=== PATIENT | male | born 1965 | race Caucasian/White ===

== ENCOUNTER 2020-10-24 08:46 | Inpatient (IN) | payer OTHER ==
[2020-10-24 10:15] VITALS: BMI 20.7
[2020-10-24] MEDS ORDERED: MENTHOL/PHENOL 1 EACH UD MM PRN (10:26)
[2020-10-24] MEDS ORDERED: ACETAMINOPHEN 325 MG TABLET (FP) PO PRN (10:26)
[2020-10-24] MEDS ORDERED: MAGNESIUM HYDROX 2400MG/30ML ORAL SUSPENSION 30 ML CUP PO PRN (10:26)
[2020-10-24] MEDS ORDERED: MAGNESIUM CITRATE 300 ML BOTTLE PO PRN (10:26)
[2020-10-24] MEDS ORDERED: MAG HYDROX/AL HYDROX/SIMETH 30 ML UNIT-DOSE CUP PO PRN (10:26)
[2020-10-24] MEDS ORDERED: BISMUTH SUBSALICYLATE 524 MG/30 ML UD PO PRN (10:26)
[2020-10-24] MEDS ORDERED: ONDANSETRON *ODT* 4 MG TABLET SL PRN (10:26)
[2020-10-24] MEDS ORDERED: NICOTINE POLACRILEX 2 MG GUM BUC PRN (10:26)
[2020-10-24] MEDS ORDERED: cloNIDine HCL 0.1 MG TABLET PO PRN (10:26)
[2020-10-24] MEDS ORDERED: METHADONE HCL 10 MG TABLET (FOR DETOX USE ONLY) PO ONE (11:00)
[2020-10-24] MEDS: NICOTINE 21 MG/24 HOURS TOPICAL PATCH TD SCH (12:06)
[2020-10-24 14:26] LABS: HEMATOCRIT 41.1 % (35.4-49); HEMOGLOBIN 13.3 GM/dL (11.7-16.9); MEAN CELL VOLUME 93.3 fl (80-96); WHITE BLOOD COUNT 9.4 K/mm3 (4.0-10.0)
[2020-10-24 14:27] LABS: MCH 30.2 pg (25.7-33.7); MCHC 32.4 g/dl (32.0-35.9); MEAN PLT VOLUME 10.3 fl (7.5-11.1); PLATELET COUNT 124 K/MM3 (134-434)
[2020-10-24 14:32] LABS: POTASSIUM 5.1 mmol/L (3.5-5.1)
[2020-10-24 14:34] LABS: ALBUMIN 3.5 g/dl (3.4-5.0); BLOOD UREA NITROGEN 19.3 mg/dL (7-18); CALCIUM 8.9 mg/dL (8.5-10.1)
[2020-10-24] MEDS: hydrOXYzine PAMOATE 25 MG CAPSULE (FP) PO SCH ×3 (14:37→22:19)
[2020-10-24 14:38] LABS: CREATININE 0.9 mg/dL (0.55-1.3)
[2020-10-24 14:39] LABS: BILIRUBIN,TOTAL 0.3 mg/dL (0.2-1); TOT PROT 7.4 g/dl (6.4-8.2)
[2020-10-24] MEDS: IBUPROFEN 400 MG TABLET (FP) PO PRN (17:37)
[2020-10-24] MEDS: MELATONIN 5 MG TABLETS PO SCH (22:19)
[2020-10-24] MEDS: THIAMINE HCL 100 MG TABLET (FP) PO SCH (22:19)
[2020-10-24] MEDS: METHOCARBAMOL 500 MG TABLET PO PRN (22:20)
[2020-10-25] MEDS: hydrOXYzine PAMOATE 25 MG CAPSULE (FP) PO SCH ×3 (05:23→14:55)
[2020-10-25] MEDS ORDERED: METHADONE HCL 5 MG TABLET (FOR DETOX USE ONLY) ONE (09:13)
[2020-10-25] MEDS ORDERED: METHADONE HCL 10 MG TABLET (FOR DETOX USE ONLY) ONE (09:13)
[2020-10-25] MEDS ORDERED: METHADONE (DETOX) 20 MG, METHADONE (DETOX) 5 MG PO ONE (10:00)
[2020-10-25] MEDS: PRENATAL VITAMINS W/ FOLIC ACID TABLET (FP) PO SCH (10:32)
[2020-10-25] MEDS: NICOTINE 21 MG/24 HOURS TOPICAL PATCH TD SCH (10:33)
[2020-10-25] MEDS: hydrOXYzine PAMOATE 50 MG CAPSULE (FP) PO SCH ×3 (17:00→23:07)
[2020-10-25] MEDS: IBUPROFEN 400 MG TABLET (FP) PO PRN (17:38)
[2020-10-25] MEDS: ARIPiprazole 2 MG TABLET PO SCH (23:07)
[2020-10-25] MEDS: MELATONIN 5 MG TABLETS PO SCH (23:07)
[2020-10-25] MEDS: METHOCARBAMOL 500 MG TABLET PO PRN (23:07)
[2020-10-25] MEDS: THIAMINE HCL 100 MG TABLET (FP) PO SCH (23:07)
[2020-10-25] MEDS: traZODone HCL 50 MG TABLET (FP) PO SCH (23:07)
[2020-10-26] MEDS: hydrOXYzine PAMOATE 50 MG CAPSULE (FP) PO SCH ×6 (05:35→23:13)
[2020-10-26] MEDS ORDERED: METHADONE HCL 10 MG TABLET (FOR DETOX USE ONLY) PO ONE (10:00)
[2020-10-26] MEDS: NICOTINE 21 MG/24 HOURS TOPICAL PATCH TD SCH (10:28)
[2020-10-26] MEDS: PRENATAL VITAMINS W/ FOLIC ACID TABLET (FP) PO SCH (10:28)
[2020-10-26] MEDS: ACETAMINOPHEN 325 MG TABLET (FP) PO PRN (10:30)
[2020-10-26] MEDS: METHOCARBAMOL 500 MG TABLET PO PRN ×2 (10:30→23:13)
[2020-10-26] MEDS: IBUPROFEN 400 MG TABLET (FP) PO PRN (17:18)
[2020-10-26] MEDS: traZODone HCL 50 MG TABLET (FP) PO SCH (23:13)
[2020-10-26] MEDS: THIAMINE HCL 100 MG TABLET (FP) PO SCH (23:13)
[2020-10-26] MEDS: MELATONIN 5 MG TABLETS PO SCH (23:14)
[2020-10-26] MEDS: ARIPiprazole 2 MG TABLET PO SCH (23:14)
[2020-10-27] MEDS: hydrOXYzine PAMOATE 50 MG CAPSULE (FP) PO SCH ×6 (06:19→23:04)
[2020-10-27] MEDS ORDERED: METHADONE HCL 10 MG TABLET (FOR DETOX USE ONLY) ONE (09:20)
[2020-10-27] MEDS ORDERED: METHADONE HCL 5 MG TABLET (FOR DETOX USE ONLY) ONE (09:21)
[2020-10-27] MEDS: ARIPiprazole 5 MG TABLET PO SCH (09:38)
[2020-10-27] MEDS: METHOCARBAMOL 500 MG TABLET PO PRN ×2 (09:39→23:04)
[2020-10-27] MEDS: IBUPROFEN 400 MG TABLET (FP) PO PRN (09:39)
[2020-10-27] MEDS: NICOTINE 21 MG/24 HOURS TOPICAL PATCH TD SCH (09:40)
[2020-10-27] MEDS: PRENATAL VITAMINS W/ FOLIC ACID TABLET (FP) PO SCH (09:40)
[2020-10-27] MEDS ORDERED: METHADONE (DETOX) 10 MG, METHADONE (DETOX) 5 MG PO ONE (10:00)
[2020-10-27] MEDS: traZODone HCL 50 MG TABLET (FP) PO SCH (23:05)
[2020-10-27] MEDS: THIAMINE HCL 100 MG TABLET (FP) PO SCH (23:05)
[2020-10-27] MEDS: MELATONIN 5 MG TABLETS PO SCH (23:05)
[2020-10-28] MEDS: hydrOXYzine PAMOATE 50 MG CAPSULE (FP) PO SCH ×5 (06:50→21:05)
[2020-10-28] MEDS ORDERED: METHADONE HCL 10 MG TABLET (FOR DETOX USE ONLY) PO ONE (10:00)
[2020-10-28] MEDS: ARIPiprazole 5 MG TABLET PO SCH (10:23)
[2020-10-28] MEDS: METHOCARBAMOL 500 MG TABLET PO PRN (10:23)
[2020-10-28] MEDS: PRENATAL VITAMINS W/ FOLIC ACID TABLET (FP) PO SCH (10:24)
[2020-10-28] MEDS: NICOTINE 21 MG/24 HOURS TOPICAL PATCH TD SCH (10:24)
[2020-10-28] MEDS: THIAMINE HCL 100 MG TABLET (FP) PO SCH (21:05)
[2020-10-28] MEDS: MELATONIN 5 MG TABLETS PO SCH (21:05)
[2020-10-28] MEDS: traZODone HCL 50 MG TABLET (FP) PO SCH (21:06)
[2020-10-28] MEDS: ACETAMINOPHEN 325 MG TABLET (FP) PO PRN (21:07)
[2020-10-29] MEDS: hydrOXYzine PAMOATE 50 MG CAPSULE (FP) PO SCH ×4 (00:01→15:47)
[2020-10-29] MEDS: IBUPROFEN 400 MG TABLET (FP) PO PRN (05:18)
[2020-10-29] MEDS ORDERED: METHADONE HCL 5 MG TABLET (FOR DETOX USE ONLY) PO ONE (06:00)
[2020-10-29] MEDS: NICOTINE 21 MG/24 HOURS TOPICAL PATCH TD SCH (09:54)
[2020-10-29] MEDS: PRENATAL VITAMINS W/ FOLIC ACID TABLET (FP) PO SCH (09:54)
[2020-10-29] MEDS: ARIPiprazole 5 MG TABLET PO SCH (09:54)
[2020-10-29] MEDS: ACETAMINOPHEN 325 MG TABLET (FP) PO PRN (15:45)
[2020-10-29] MEDS: traZODone HCL 50 MG TABLET (FP) PO SCH (22:18)
[2020-10-29] MEDS: MELATONIN 5 MG TABLETS PO SCH (22:18)
[2020-10-29] MEDS: THIAMINE HCL 100 MG TABLET (FP) PO SCH (22:18)
[2020-10-29] MEDS: METHOCARBAMOL 500 MG TABLET PO PRN (22:19)
[2020-10-30] MEDS: hydrOXYzine PAMOATE 50 MG CAPSULE (FP) PO SCH ×5 (00:22→07:35)
[2020-10-30 09:08] VITALS: BP 118/63; PULSE 81; TEMP 97.7
[2020-10-30] MEDS: NICOTINE 21 MG/24 HOURS TOPICAL PATCH TD SCH (10:11)
[2020-10-30] MEDS: PRENATAL VITAMINS W/ FOLIC ACID TABLET (FP) PO SCH (10:11)
[2020-10-30] MEDS: ARIPiprazole 5 MG TABLET PO SCH (10:11)
== END 2020-10-30 13:09 | disposition other institution (70) | DRG 773 ==
LOC: YASAS 08:46 → Y3N 10:47
PROVIDERS: ADMIT Allergy & Immunology; ATTEND Allergy & Immunology
PROC: HZ2ZZZZ Detoxification Services for Substance Abuse Treatment (ICD-10-PCS; principal; 2020-10-24)
DX: F11.23 Opioid dependence with withdrawal (principal); F12.20 Cannabis dependence, uncomplicated; F17.213 Nicotine dependence, cigarettes, with withdrawal; F19.24 Other psychoactive substance dependence with psychoactive substance-induced mood disorder; F20.0 Paranoid schizophrenia; G47.00 Insomnia, unspecified; F95.2 Tourette's disorder; M54.5 Low back pain; G89.29 Other chronic pain; Z91.19 Patient's noncompliance with other medical treatment and regimen
CPT/HCPCS: 36415; 80053; 85027; 86780; 93005; 93010; C9803; U0003

== ENCOUNTER 2020-10-30 14:29 | Inpatient (IN) | payer OTHER ==
[~2020-10-30 14:29] MED LIST: ACETAMINOPHEN 325 MG TABLET (FP) PO PRN; LOPERAMIDE HCL 2 MG CAPSULE PO PRN; MAG HYDROX/AL HYDROX/SIMETH 30 ML UNIT-DOSE CUP PO PRN; MAGNESIUM CITRATE 300 ML BOTTLE PO PRN; MAGNESIUM HYDROX 2400MG/30ML ORAL SUSPENSION 30 ML CUP PO PRN; NICOTINE POLACRILEX 4 MG GUM BC PRN; P-EPHED 60MG/TRIPROLIDI 2.5MG TABLET PO PRN; guaiFENesin 200 MG/10 ML 10 ML UNIT-DOSE CUPS PO PRN
[2020-10-30] MEDS: THIAMINE HCL 100 MG TABLET (FP) PO SCH (21:17)
[2020-10-30] MEDS: MELATONIN 5 MG TABLETS PO SCH (21:17)
[2020-10-30] MEDS: ARIPiprazole 2 MG TABLET PO SCH (21:17)
[2020-10-30] MEDS: IBUPROFEN 400 MG TABLET (FP) PO PRN (21:19)
[2020-10-30] MEDS: traZODone HCL 50 MG TABLET (FP) PO SCH (21:19)
[2020-10-31] MEDS: hydrOXYzine PAMOATE 25 MG CAPSULE (FP) PO PRN ×2 (08:20→23:08)
[2020-10-31] MEDS: NICOTINE 21 MG/24 HOURS TOPICAL PATCH TD SCH (09:50)
[2020-10-31] MEDS: ARIPiprazole 5 MG TABLET PO SCH (09:50)
[2020-10-31] MEDS: PRENATAL VITAMINS W/ FOLIC ACID TABLET (FP) PO SCH (09:51)
[2020-10-31] MEDS: IBUPROFEN 400 MG TABLET (FP) PO PRN ×2 (09:52→21:20)
[2020-10-31] MEDS ORDERED: ARIPiprazole 2 MG TABLET PO SCH (10:00)
[2020-10-31] MEDS: MELATONIN 5 MG TABLETS PO SCH (21:20)
[2020-10-31] MEDS: ARIPiprazole 2 MG TABLET PO SCH (21:20)
[2020-10-31] MEDS: traZODone HCL 50 MG TABLET (FP) PO SCH (21:20)
[2020-10-31] MEDS: THIAMINE HCL 100 MG TABLET (FP) PO SCH (21:20)
[2020-11-01 06:51] VITALS: BP 143/75; PULSE 76; TEMP 97.9
[2020-11-01] MEDS: hydrOXYzine PAMOATE 25 MG CAPSULE (FP) PO PRN (09:57)
[2020-11-01] MEDS: PRENATAL VITAMINS W/ FOLIC ACID TABLET (FP) PO SCH (09:57)
[2020-11-01] MEDS: ARIPiprazole 5 MG TABLET PO SCH (09:58)
[2020-11-01] MEDS: IBUPROFEN 400 MG TABLET (FP) PO PRN ×2 (09:58→16:50)
[2020-11-01] MEDS: NICOTINE 21 MG/24 HOURS TOPICAL PATCH TD SCH (09:58)
[2020-11-01] MEDS: THIAMINE HCL 100 MG TABLET (FP) PO SCH (21:18)
[2020-11-01] MEDS: ARIPiprazole 2 MG TABLET PO SCH (21:18)
[2020-11-01] MEDS ORDERED: MELATONIN 5 MG TABLETS PO SCH ×2 (22:00)
[2020-11-01] MEDS ORDERED: SUVOREXANT 10 MG TABLET PO PRN (22:00)
[2020-11-02] MEDS: IBUPROFEN 400 MG TABLET (FP) PO PRN ×2 (03:04→08:37)
[2020-11-02] MEDS: hydrOXYzine PAMOATE 25 MG CAPSULE (FP) PO PRN ×2 (03:08→08:39)
[2020-11-02] MEDS: NICOTINE 21 MG/24 HOURS TOPICAL PATCH TD SCH (10:31)
[2020-11-02] MEDS: PRENATAL VITAMINS W/ FOLIC ACID TABLET (FP) PO SCH (10:31)
[2020-11-02] MEDS: ARIPiprazole 5 MG TABLET PO SCH (10:32)
== END 2020-11-02 08:40 | disposition home or self-care (01) | DRG 772 ==
LOC: YASAS 14:29 → Y3W 14:30
PROVIDERS: ADMIT Allergy & Immunology; ATTEND Allergy & Immunology
PROC: HZ42ZZZ Group Counseling for Substance Abuse Treatment, Cognitive-Behavioral (ICD-10-PCS; principal; 2020-10-30)
DX: F11.20 Opioid dependence, uncomplicated (principal); F10.20 Alcohol dependence, uncomplicated; F12.20 Cannabis dependence, uncomplicated; F19.24 Other psychoactive substance dependence with psychoactive substance-induced mood disorder; F19.282 Other psychoactive substance dependence with psychoactive substance-induced sleep disorder; F20.0 Paranoid schizophrenia; F95.2 Tourette's disorder; Z86.11 Personal history of tuberculosis

== ENCOUNTER 2021-02-14 09:21 | Inpatient (IN) | payer OTHER ==
[2021-02-14 10:01] VITALS: BMI 21.2
[2021-02-14] MEDS ORDERED: MAGNESIUM CITRATE 300 ML BOTTLE PO PRN (11:00)
[2021-02-14] MEDS ORDERED: MENTHOL/PHENOL 1 EACH UD MM PRN (11:00)
[2021-02-14] MEDS ORDERED: MAG HYDROX/AL HYDROX/SIMETH 30 ML UNIT-DOSE CUP PO PRN (11:00)
[2021-02-14] MEDS ORDERED: cloNIDine HCL 0.1 MG TABLET PO PRN (11:00)
[2021-02-14] MEDS ORDERED: ACETAMINOPHEN 325 MG TABLET (FP) PO PRN ×2 (11:00)
[2021-02-14] MEDS ORDERED: MAGNESIUM HYDROX 2400MG/30ML ORAL SUSPENSION 30 ML CUP PO PRN (11:00)
[2021-02-14] MEDS ORDERED: METHADONE HCL 10 MG TABLET (FOR DETOX USE ONLY) PO ONE (11:00)
[2021-02-14] MEDS ORDERED: NICOTINE POLACRILEX 2 MG GUM BUC PRN (11:00)
[2021-02-14] MEDS ORDERED: BISMUTH SUBSALICYLATE 262 MG/15 ML BTL PO PRN (11:00)
[2021-02-14] MEDS ORDERED: ONDANSETRON *ODT* 4 MG TABLET SL PRN (11:00)
[2021-02-14] MEDS: METHOCARBAMOL 500 MG TABLET PO PRN (11:43)
[2021-02-14] MEDS: NICOTINE 21 MG/24 HOURS TOPICAL PATCH TD SCH (11:47)
[2021-02-14 13:51] LABS: HEMATOCRIT 41.1 % (35.4-49); MCH 30.9 pg (25.7-33.7); MEAN CELL VOLUME 91.1 fl (80-96); MEAN PLT VOLUME 10.4 fl (7.5-11.1); PLATELET COUNT 135 K/MM3 (134-434); RBC 4.51 M/mm3 (4.00-5.60); RDW 12.6 % (11.9-15.9); WHITE BLOOD COUNT 10.3 K/mm3 (4.0-10.0)
[2021-02-14 13:57] LABS: BLOOD UREA NITROGEN 11.8 mg/dL (7-18); CALCIUM 9.1 mg/dL (8.5-10.1)
[2021-02-14 13:58] LABS: ALBUMIN 3.6 g/dl (3.4-5.0)
[2021-02-14 13:59] LABS: CREATININE 0.7 mg/dL (0.55-1.3)
[2021-02-14 14:00] LABS: BILIRUBIN,TOTAL 0.4 mg/dL (0.2-1); TOT PROT 7.7 g/dl (6.4-8.2)
[2021-02-14] MEDS: hydrOXYzine PAMOATE 25 MG CAPSULE (FP) PO SCH ×3 (15:07→22:19)
[2021-02-14] MEDS ORDERED: MELATONIN 5 MG TABLETS PO SCH (22:00)
[2021-02-14] MEDS: MELATONIN 5 MG TABLETS PO PRN (22:19)
[2021-02-14] MEDS: THIAMINE HCL 100 MG TABLET (FP) PO SCH (22:19)
[2021-02-15] MEDS: hydrOXYzine PAMOATE 25 MG CAPSULE (FP) PO SCH ×5 (06:23→21:56)
[2021-02-15] MEDS ORDERED: METHADONE HCL 10 MG TABLET (FOR DETOX USE ONLY) ONE (08:59)
[2021-02-15] MEDS ORDERED: METHADONE HCL 5 MG TABLET (FOR DETOX USE ONLY) ONE (08:59)
[2021-02-15] MEDS: NICOTINE 21 MG/24 HOURS TOPICAL PATCH TD SCH (09:31)
[2021-02-15] MEDS: PRENATAL VITAMINS W/ FOLIC ACID TABLET (FP) PO SCH (09:31)
[2021-02-15] MEDS: IBUPROFEN 400 MG TABLET (FP) PO PRN (09:32)
[2021-02-15] MEDS: METHOCARBAMOL 500 MG TABLET PO PRN (09:33)
[2021-02-15] MEDS ORDERED: METHADONE (DETOX) 20 MG, METHADONE (DETOX) 5 MG PO ONE (10:00)
[2021-02-15] MEDS: MELATONIN 5 MG TABLETS PO PRN (21:56)
[2021-02-15] MEDS: THIAMINE HCL 100 MG TABLET (FP) PO SCH (21:56)
[2021-02-16] MEDS: hydrOXYzine PAMOATE 25 MG CAPSULE (FP) PO SCH ×5 (06:04→22:39)
[2021-02-16] MEDS ORDERED: METHADONE HCL 10 MG TABLET (FOR DETOX USE ONLY) PO ONE (10:00)
[2021-02-16] MEDS: IBUPROFEN 400 MG TABLET (FP) PO PRN ×2 (10:11→22:39)
[2021-02-16] MEDS: METHOCARBAMOL 500 MG TABLET PO PRN (10:11)
[2021-02-16] MEDS: NICOTINE 21 MG/24 HOURS TOPICAL PATCH TD SCH (10:12)
[2021-02-16] MEDS: PRENATAL VITAMINS W/ FOLIC ACID TABLET (FP) PO SCH (10:12)
[2021-02-16] MEDS: THIAMINE HCL 100 MG TABLET (FP) PO SCH (22:39)
[2021-02-17] MEDS: hydrOXYzine PAMOATE 25 MG CAPSULE (FP) PO SCH (07:39)
[2021-02-17 09:54] VITALS: BP 141/75; PULSE 86; TEMP 96.9
[2021-02-17] MEDS ORDERED: METHADONE (DETOX) 10 MG, METHADONE (DETOX) 5 MG PO ONE (10:00)
[2021-02-17 12:12] LABS: HEMATOCRIT 42.9 % (35.4-49); HEMOGLOBIN 14.6 GM/dL (11.7-16.9); MCH 31.2 pg (25.7-33.7); MCHC 34.1 g/dl (32.0-35.9); MEAN CELL VOLUME 91.3 fl (80-96); PLATELET COUNT 143 K/MM3 (134-434); RDW 12.9 % (11.9-15.9); WHITE BLOOD COUNT 9.4 K/mm3 (4.0-10.0)
[2021-02-17 14:08] LABS: SARS-CoV-2 NAA Not Detected (Not Detected)
[2021-02-18] MEDS ORDERED: METHADONE HCL 10 MG TABLET (FOR DETOX USE ONLY) PO ONE (10:00)
[2021-02-19] MEDS ORDERED: METHADONE HCL 5 MG TABLET (FOR DETOX USE ONLY) PO ONE (06:00)
== END 2021-02-17 08:47 | disposition left against medical advice (07) | DRG 770 ==
LOC: YASAS 09:21 → Y6N 11:02
PROVIDERS: ADMIT Allergy & Immunology; ATTEND Allergy & Immunology
PROC: HZ2ZZZZ Detoxification Services for Substance Abuse Treatment (ICD-10-PCS; principal; 2021-02-14)
DX: F11.23 Opioid dependence with withdrawal (principal); F12.20 Cannabis dependence, uncomplicated; F17.210 Nicotine dependence, cigarettes, uncomplicated; F19.282 Other psychoactive substance dependence with psychoactive substance-induced sleep disorder; F19.24 Other psychoactive substance dependence with psychoactive substance-induced mood disorder; F95.2 Tourette's disorder; F20.0 Paranoid schizophrenia; F39 Unspecified mood [affective] disorder; M54.5 Low back pain; M54.2 Cervicalgia; M25.519 Pain in unspecified shoulder; G89.29 Other chronic pain
CPT/HCPCS: 36415; 80053; 85027; 86780; C9803; U0003; U0005

== ENCOUNTER 2021-07-25 08:31 | Inpatient (IN) | payer OTHER ==
[2021-07-25 10:01] VITALS: BMI 20.3
[2021-07-25] MEDS ORDERED: cloNIDine HCL 0.1 MG TABLET PO PRN (10:17)
[2021-07-25] MEDS ORDERED: METHOCARBAMOL 500 MG TABLET PO PRN (10:17)
[2021-07-25] MEDS ORDERED: MAG HYDROX/AL HYDROX/SIMETH 30 ML UNIT-DOSE CUP PO PRN (10:17)
[2021-07-25] MEDS ORDERED: ACETAMINOPHEN 325 MG TABLET (FP) PO PRN ×2 (10:17)
[2021-07-25] MEDS ORDERED: clonazePAM 0.5 MG ODT TABLETS SL PRN (10:17)
[2021-07-25] MEDS ORDERED: NICOTINE 10 MG CARTRIDGE (INHALER) IH PRN (10:17)
[2021-07-25] MEDS ORDERED: MENTHOL/PHENOL 1 EACH UD MM PRN (10:17)
[2021-07-25] MEDS ORDERED: ONDANSETRON *ODT* 4 MG TABLET SL PRN (10:17)
[2021-07-25] MEDS ORDERED: BISMUTH SUBSALICYLATE 524 MG/30 ML PO PRN (10:17)
[2021-07-25] MEDS ORDERED: MAGNESIUM CITRATE 300 ML BOTTLE PO PRN (10:17)
[2021-07-25] MEDS ORDERED: MAGNESIUM HYDROX 2400MG/30ML ORAL SUSPENSION 30 ML CUP PO PRN (10:17)
[2021-07-25] MEDS ORDERED: hydrOXYzine PAMOATE 25 MG CAPSULE (FP) PO ONE (10:33)
[2021-07-25] MEDS ORDERED: methaDONE HCL 10 MG TABLET (FOR DETOX USE ONLY) PO ONE (10:45)
[2021-07-25] MEDS: IBUPROFEN 400 MG TABLET (FP) PO PRN ×2 (12:07→22:01)
[2021-07-25] MEDS: PRENATAL VITAMINS W/ FOLIC ACID TABLET (FP) PO SCH (12:08)
[2021-07-25] MEDS: NICOTINE 21 MG/24 HOURS TOPICAL PATCH TD SCH (12:08)
[2021-07-25] MEDS: hydrOXYzine PAMOATE 25 MG CAPSULE (FP) PO SCH ×3 (14:18→22:42)
[2021-07-25 15:12] LABS: HEMATOCRIT 44.8 % (35.4-49); HEMOGLOBIN 15.2 GM/dL (11.7-16.9); MCH 31.4 pg (25.7-33.7); MCHC 33.8 g/dl (32.0-35.9); MEAN CELL VOLUME 92.7 fl (80-96); PLATELET COUNT 128 10^3/uL (134-434); RBC 4.84 M/mm3 (4.00-5.60); WHITE BLOOD COUNT 13.4 K/mm3 (4.0-10.0)
[2021-07-25 15:19] LABS: ALBUMIN 3.5 g/dl (3.4-5.0); BLOOD UREA NITROGEN 15.8 mg/dL (7-18); CALCIUM 8.9 mg/dL (8.5-10.1)
[2021-07-25 15:22] LABS: CREATININE 0.8 mg/dL (0.55-1.3)
[2021-07-25 15:24] LABS: BILIRUBIN,TOTAL 0.6 mg/dL (0.2-1); TOT PROT 7.6 g/dl (6.4-8.2)
[2021-07-25] MEDS: MELATONIN 5 MG TABLETS PO SCH (21:59)
[2021-07-25] MEDS: THIAMINE HCL 100 MG TABLET (FP) PO SCH (22:01)
[2021-07-26] MEDS: IBUPROFEN 400 MG TABLET (FP) PO PRN (05:48)
[2021-07-26] MEDS: hydrOXYzine PAMOATE 25 MG CAPSULE (FP) PO SCH ×5 (05:48→23:16)
[2021-07-26] MEDS ORDERED: methaDONE HCL 10 MG TABLET (FOR DETOX USE ONLY) ONE (09:29)
[2021-07-26] MEDS: NICOTINE 21 MG/24 HOURS TOPICAL PATCH TD SCH (10:06)
[2021-07-26] MEDS: PRENATAL VITAMINS W/ FOLIC ACID TABLET (FP) PO SCH (10:06)
[2021-07-26 18:26] VITALS: BP 128/69; PULSE 78; TEMP 98.1
[2021-07-26] MEDS: MELATONIN 5 MG TABLETS PO SCH (23:15)
[2021-07-26] MEDS: THIAMINE HCL 100 MG TABLET (FP) PO SCH ×2 (23:16→23:17)
[2021-07-27] MEDS ORDERED: methaDONE HCL 10 MG TABLET (FOR DETOX USE ONLY) PO ONE (10:00)
[2021-07-29] MEDS ORDERED: methaDONE HCL 10 MG TABLET (FOR DETOX USE ONLY) PO ONE (10:00)
== END 2021-07-26 17:27 | disposition left against medical advice (07) | DRG 770 ==
LOC: YASAS 08:31 → Y6N 11:13
PROVIDERS: ADMIT Allergy & Immunology; ATTEND Allergy & Immunology
PROC: HZ2ZZZZ Detoxification Services for Substance Abuse Treatment (ICD-10-PCS; principal; 2021-07-25)
DX: F11.23 Opioid dependence with withdrawal (principal); F10.230 Alcohol dependence with withdrawal, uncomplicated; F14.10 Cocaine abuse, uncomplicated; F12.20 Cannabis dependence, uncomplicated; F17.210 Nicotine dependence, cigarettes, uncomplicated; F19.282 Other psychoactive substance dependence with psychoactive substance-induced sleep disorder; F19.24 Other psychoactive substance dependence with psychoactive substance-induced mood disorder; F95.2 Tourette's disorder; M50.30 Other cervical disc degeneration, unspecified cervical region; M54.5 Low back pain; M25.519 Pain in unspecified shoulder; G89.29 Other chronic pain; Z91.5 Personal history of self-harm; Z86.11 Personal history of tuberculosis; Z91.19 Patient's noncompliance with other medical treatment and regimen
CPT/HCPCS: 36415; 80053; 85027; 86780; C9803; U0003; U0005

== ENCOUNTER 2023-02-23 06:21 | Emergency (ER) | payer OTHER ==
[2023-02-23 06:29] VITALS: BP 184/95; PULSE 87; RESP 20; TEMP 98.1; BMI 24.2
== END 2023-02-23 08:02 | disposition left against medical advice (07) ==
LOC: JER 06:21
DX: Z00.00 Encounter for general adult medical examination without abnormal findings (principal)
CPT/HCPCS: 99281-25

== ENCOUNTER 2023-10-16 16:48 | Inpatient (IN) | payer OTHER ==
[2023-10-16 17:04] VITALS: BMI 17.7
[2023-10-16 19:13] LABS: EOS % 8.2 % (0-4.5); HEMATOCRIT 41.7 % (35.4-49); LYMPH % 16.4 % (8-40); MCH 30.4 pg (25.7-33.7); MCHC 33.5 g/dl (32.0-35.9); MEAN CELL VOLUME 90.7 fl (80-96); MEAN PLT VOLUME 8.1 fl (7.5-11.1); MONO % 7.4 % (3.8-10.2); PLATELET COUNT 214 10^3/uL (134-434); RDW 14.8 % (11.9-15.9); WHITE BLOOD COUNT 7.4 K/mm3 (4.0-10.0)
[2023-10-16 19:21] LABS: INR 1.04 (0.83-1.09); PROTHROMBIN TIME (PATIENT) 12.1 SEC (9.7-13.0)
[2023-10-16 19:23] LABS: ACTIVATED PTT 31.2 SECONDS (25.2-36.5)
[2023-10-16 19:35] LABS: POTASSIUM 3.8 mmol/L (3.5-5.1)
[2023-10-16 19:36] LABS: CALCIUM 8.5 mg/dL (8.5-10.1)
[2023-10-16 19:37] LABS: ALBUMIN 2.9 g/dl (3.4-5.0); BLOOD UREA NITROGEN 8.6 mg/dL (7-18)
[2023-10-16 19:40] LABS: CREATININE 0.5 mg/dL (0.55-1.3)
[2023-10-16 19:42] LABS: BILIRUBIN,TOTAL 0.3 mg/dL (0.2-1); TOT PROT 7.4 g/dl (6.4-8.2)
[2023-10-16] MEDS ORDERED: PIPERACILLIN/TAZOB 4.5 GM 4.5 GM in DEXTROSE 5%-WATER 100 ML IVPB ONE (20:10)
[2023-10-16] MEDS ORDERED: VANCOMYCIN 1,000 MG in DEXTROSE 5%-WATER - 250 ML IVPB ONE (20:10)
[2023-10-16] MEDS ORDERED: PIPERACILLIN/TAZOB 4.5 GM 4.5 GM/100 ML BAG IVPB ONE (20:17)
[2023-10-16 20:29] LABS: ERYTHROCYTE SEDIMENTATION RATE 25 mm/hr (0-20)
[2023-10-16] MEDS ORDERED: VANCOMYCIN 1 GRAM (PRE-DOCKED) 1,000 MG/250 ML BAG IVPB ONE (21:41)
[2023-10-16] MEDS ORDERED: DICYCLOMINE HCL 10 MG CAPSULE PO PRN (21:59)
[2023-10-16] MEDS ORDERED: morphine SULFATE IMMEDIATE RELEASE 30 MG TAB PO PRN (21:59)
[2023-10-16] MEDS ORDERED: morphine SULFATE IMMEDIATE RELEASE 30 MG TAB PO SCH (22:00)
[2023-10-16] MEDS ORDERED: amLODIPine BESYLATE 5 MG TABLET (FP) ONE (23:07)
[2023-10-16] MEDS ORDERED: DOCUSATE SODIUM 100 MG CAPSULE (FP) PO ONE (23:08)
[2023-10-16] MEDS: amLODIPine BESYLATE 5 MG TABLET (FP) PO SCH (23:13)
[2023-10-16] MEDS: DOCUSATE SODIUM 100 MG CAPSULE (FP) PO SCH (23:13)
[2023-10-16] MEDS ORDERED: morphine SULFATE IMMEDIATE RELEASE 30 MG TAB ONE (23:48)
[2023-10-17] MEDS ORDERED: DICYCLOMINE HCL 10 MG CAPSULE PO SCH
[2023-10-17] MEDS ORDERED: ACETAMINOPHEN 1000 MG/100 ML BAG IVPB PRN (00:20)
[2023-10-17] MEDS ORDERED: PIPERACILLIN/TAZOB 3.375 GM 3.375 GM in DEXTROSE 5%-WATER - 50 ML IVPB SCH (02:00)
[2023-10-17 09:24] LABS: HEMATOCRIT 38.5 % (35.4-49); HEMOGLOBIN 13.4 GM/dL (11.7-16.9); MCH 31.6 pg (25.7-33.7); MCHC 34.7 g/dl (32.0-35.9); MEAN CELL VOLUME 90.9 fl (80-96); MEAN PLT VOLUME 8.8 fl (7.5-11.1); PLATELET COUNT 175 10^3/uL (134-434); RBC 4.24 M/mm3 (4.00-5.60); RDW 14.7 % (11.9-15.9)
[2023-10-17 09:42] LABS: POTASSIUM 3.4 mmol/L (3.5-5.1)
[2023-10-17 09:45] LABS: CALCIUM 8.9 mg/dL (8.5-10.1)
[2023-10-17 09:46] LABS: BLOOD UREA NITROGEN 5.3 mg/dL (7-18)
[2023-10-17 09:49] LABS: CREATININE 0.5 mg/dL (0.55-1.3)
[2023-10-17] MEDS ORDERED: VANCOMYCIN 1,000 MG in DEXTROSE 5%-WATER - 250 ML IVPB SCH (10:00)
[2023-10-17] MEDS ORDERED: PATIENT'S OWN MEDICATION (NON-FORMULARY) (Linaclotide [Linzess] 145 MCG Capsule) PO SCH (10:00)
[2023-10-17] MEDS ORDERED: ENOXAPARIN NA (PORCINE) 40 MG/0.4 ML DISP.SYRIN SQ SCH (10:00)
[2023-10-17] MEDS ORDERED: methaDONE HCL 40 MG DISPERSABLE TABLET PO SCH (10:00)
[2023-10-17] MEDS ORDERED: VANCOMYCIN/WATER FOR INJ (PEG) 1,000 MG/200 ML BAG IVPB SCH (10:00)
[2023-10-17] MEDS: amLODIPine BESYLATE 5 MG TABLET (FP) PO SCH (10:43)
[2023-10-17] MEDS: AMPICILLIN NA/SULBACTAM NA 3 GM in SODIUM CHLORIDE 100 ML IVPB SCH ×3 (10:43→21:53)
[2023-10-17] MEDS: SENNOSIDES 8.6MG TABLET (FP) PO SCH (10:43)
[2023-10-17] MEDS: DOCUSATE SODIUM 100 MG CAPSULE (FP) PO SCH ×2 (10:43→21:53)
[2023-10-17] MEDS: KETOROLAC TROMETHAMINE 30 MG/1 ML VIAL IVPUSH PRN (11:24)
[2023-10-17] MEDS: methaDONE 80 MG, methaDONE 10 MG PO SCH (15:26)
[2023-10-17] MEDS ORDERED: POTASSIUM CHLORIDE ORAL LIQUID 20 MEQ/15 ML PO ONE (19:30)
[2023-10-18] MEDS: KETOROLAC TROMETHAMINE 30 MG/1 ML VIAL IVPUSH PRN ×2 (02:34→22:40)
[2023-10-18] MEDS: AMPICILLIN NA/SULBACTAM NA 3 GM in SODIUM CHLORIDE 100 ML IVPB SCH ×4 (02:35→22:08)
[2023-10-18] MEDS: methaDONE 80 MG, methaDONE 10 MG PO SCH (06:02)
[2023-10-18 10:14] LABS: BASO % 1.1 % (0-2.0); HEMATOCRIT 40.7 % (35.4-49); HEMOGLOBIN 13.6 GM/dL (11.7-16.9); LYMPH % 20.6 % (8-40); MCH 30.8 pg (25.7-33.7); MCHC 33.3 g/dl (32.0-35.9); MEAN CELL VOLUME 92.6 fl (80-96); MEAN PLT VOLUME 9.1 fl (7.5-11.1); MONO % 9.5 % (3.8-10.2); NEUT % 59.8 % (42.8-82.8); PLATELET COUNT 183 10^3/uL (134-434); RDW 14.8 % (11.9-15.9); WHITE BLOOD COUNT 6.3 K/mm3 (4.0-10.0)
[2023-10-18] MEDS: amLODIPine BESYLATE 5 MG TABLET (FP) PO SCH (10:26)
[2023-10-18] MEDS: DOCUSATE SODIUM 100 MG CAPSULE (FP) PO SCH ×2 (10:26→22:08)
[2023-10-18] MEDS: SENNOSIDES 8.6MG TABLET (FP) PO SCH (10:26)
[2023-10-18 10:41] LABS: POTASSIUM 4.2 mmol/L (3.5-5.1)
[2023-10-18 11:43] LABS: CALCIUM 8.5 mg/dL (8.5-10.1)
[2023-10-18 11:44] LABS: ALBUMIN 2.6 g/dl (3.4-5.0); BLOOD UREA NITROGEN 8.4 mg/dL (7-18); MAGNESIUM 2.3 mg/dL (1.8-2.4)
[2023-10-18 11:47] LABS: CREATININE 0.6 mg/dL (0.55-1.3); PHOSPHOROUS 3.7 mg/dL (2.5-4.9)
[2023-10-18 11:48] LABS: BILIRUBIN,TOTAL 0.5 mg/dL (0.2-1); TOT PROT 6.8 g/dl (6.4-8.2)
[2023-10-19] MEDS: AMPICILLIN NA/SULBACTAM NA 3 GM in SODIUM CHLORIDE 100 ML IVPB SCH ×2 (02:50→09:18)
[2023-10-19] MEDS: methaDONE 80 MG, methaDONE 10 MG PO SCH (05:13)
[2023-10-19] MEDS: SENNOSIDES 8.6MG TABLET (FP) PO SCH (09:19)
[2023-10-19] MEDS: DOCUSATE SODIUM 100 MG CAPSULE (FP) PO SCH (09:20)
[2023-10-19] MEDS: amLODIPine BESYLATE 5 MG TABLET (FP) PO SCH (09:20)
[2023-10-19 10:13] LABS: BASO % 0.8 % (0-2.0); EOS % 8.6 % (0-4.5); HEMATOCRIT 38.5 % (35.4-49); HEMOGLOBIN 12.9 GM/dL (11.7-16.9); LYMPH % 17.8 % (8-40); MCH 30.5 pg (25.7-33.7); MCHC 33.4 g/dl (32.0-35.9); MEAN CELL VOLUME 91.4 fl (80-96); MEAN PLT VOLUME 8.5 fl (7.5-11.1); MONO % 9.8 % (3.8-10.2); PLATELET COUNT 166 10^3/uL (134-434); RBC 4.21 M/mm3 (4.00-5.60); WHITE BLOOD COUNT 6.4 K/mm3 (4.0-10.0)
[2023-10-19 10:31] LABS: POTASSIUM 4.6 mmol/L (3.5-5.1)
[2023-10-19 10:42] LABS: CALCIUM 8.8 mg/dL (8.5-10.1)
[2023-10-19 10:43] LABS: ALBUMIN 2.4 g/dl (3.4-5.0); BLOOD UREA NITROGEN 8.5 mg/dL (7-18)
[2023-10-19 10:44] LABS: MAGNESIUM 2.2 mg/dL (1.8-2.4)
[2023-10-19 10:46] LABS: CREATININE 0.6 mg/dL (0.55-1.3); PHOSPHOROUS 3.8 mg/dL (2.5-4.9)
[2023-10-19 10:47] LABS: BILIRUBIN,TOTAL 0.8 mg/dL (0.2-1); TOT PROT 6.3 g/dl (6.4-8.2)
[2023-10-19 11:05] VITALS: BP 135/87; PULSE 112; RESP 18; TEMP 98.3
== END 2023-10-19 11:03 | disposition left against medical advice (07) | DRG 383 ==
LOC: JER 16:48 → JERBED 20:37 → J5S 10-17 02:03
PROVIDERS: ADMIT Internal Medicine
DX: L03.011 Cellulitis of right finger (principal); C78.7 Secondary malignant neoplasm of liver and intrahepatic bile duct; R64 Cachexia; M86.9 Osteomyelitis, unspecified; C18.9 Malignant neoplasm of colon, unspecified; F11.10 Opioid abuse, uncomplicated; F17.210 Nicotine dependence, cigarettes, uncomplicated; F32.A Depression, unspecified; Z68.1 Body mass index [BMI] 19.9 or less, adult; I10 Essential (primary) hypertension; K59.00 Constipation, unspecified
CPT/HCPCS: 36415; 73130-TC-RT-FY; 73220-TC-RT; 80048; 80053; 83605; 83735; 84100; 85025; 85027; 85610; 85651; 85730; 86140; 86850; 86900; 86901; 87040; 93005; 93010; 99285-25

== ENCOUNTER 2023-10-23 15:15 | Inpatient (IN) | payer OTHER ==
[2023-10-23] MEDS ORDERED: ACETAMINOPHEN 1000 MG/100 ML BAG IVPB ONE (16:39)
[2023-10-23] MEDS ORDERED: AMPICILLIN NA/SULBACTAM NA 3 GM in SODIUM CHLORIDE 100 ML IVPB ONE (16:41)
[2023-10-23 17:44] LABS: EOS % 9.4 % (0-4.5); HEMATOCRIT 40.4 % (35.4-49); HEMOGLOBIN 13.4 GM/dL (11.7-16.9); LYMPH % 23.1 % (8-40); MCH 30.5 pg (25.7-33.7); MCHC 33.3 g/dl (32.0-35.9); MEAN CELL VOLUME 91.6 fl (80-96); MEAN PLT VOLUME 8.6 fl (7.5-11.1); MONO % 9.9 % (3.8-10.2); NEUT % 56.6 % (42.8-82.8); PLATELET COUNT 193 10^3/uL (134-434); RBC 4.41 M/mm3 (4.00-5.60); RDW 15.1 % (11.9-15.9); WHITE BLOOD COUNT 6.9 K/mm3 (4.0-10.0)
[2023-10-23 18:03] LABS: POTASSIUM 3.9 mmol/L (3.5-5.1)
[2023-10-23 18:06] LABS: ALBUMIN 2.7 g/dl (3.4-5.0); BLOOD UREA NITROGEN 11.1 mg/dL (7-18); CALCIUM 9.6 mg/dL (8.5-10.1)
[2023-10-23 18:09] LABS: CREATININE 0.6 mg/dL (0.55-1.3)
[2023-10-23 18:11] LABS: BILIRUBIN,TOTAL 0.6 mg/dL (0.2-1); TOT PROT 7.1 g/dl (6.4-8.2)
[2023-10-23] MEDS ORDERED: KETOROLAC TROMETHAMINE 15 MG/ML VIAL IVPUSH ONE (22:13)
[2023-10-24] MEDS ORDERED: traMADol HCL 50 MG TABLET PO PRN
[2023-10-24] MEDS: LACTATED RINGERS SOLUTION 1,000 ML/1,000 ML INFUS.BAG IV SCH ×2 (00:08→13:35)
[2023-10-24] MEDS: AMPICILLIN NA/SULBACTAM NA 3 GM in SODIUM CHLORIDE 100 ML IVPB SCH ×4 (00:14→21:35)
[2023-10-24 04:08] VITALS: BMI 18.0
[2023-10-24 04:43] LABS: URINE APPEARANCE CLEAR; URINE BILIRUBIN NEGATIVE (NEGATIVE); URINE COLOR DK YELLOW; URINE GLUCOSE (UA) NEGATIVE (NEGATIVE); URINE KETONE TRACE (NEGATIVE); URINE LEUK ESTERASE NEGATIVE (NEGATIVE); URINE NITRITE NEGATIVE (NEGATIVE); URINE PROTEIN NEGATIVE (NEGATIVE)
[2023-10-24 05:24] LABS: COCAINE, UR NEGATIVE (NEGATIVE); URINE BARBITURATES NEGATIVE (NEGATIVE)
[2023-10-24 05:25] LABS: PHENCYCLIDINE,URINE NEGATIVE (NEGATIVE); URINE AMPHETAMINES NEGATIVE (NEGATIVE); URINE BENZODIAZEPINES NEGATIVE (NEGATIVE)
[2023-10-24 05:32] LABS: OPIATES, URI POSITIVE (NEGATIVE)
[2023-10-24 05:33] LABS: METHADONE, UR POSITIVE (NEGATIVE)
[2023-10-24] MEDS ORDERED: methaDONE HCL 10 MG TABLET PO SCH (08:30)
[2023-10-24 08:32] LABS: HEMOGLOBIN 12.6 GM/dL (11.7-16.9); MCH 30.5 pg (25.7-33.7); MCHC 33.1 g/dl (32.0-35.9); MEAN CELL VOLUME 92.1 fl (80-96); MEAN PLT VOLUME 9.3 fl (7.5-11.1); PLATELET COUNT 170 10^3/uL (134-434); RBC 4.13 M/mm3 (4.00-5.60); WHITE BLOOD COUNT 7.1 K/mm3 (4.0-10.0)
[2023-10-24 08:46] LABS: POTASSIUM 3.8 mmol/L (3.5-5.1)
[2023-10-24 08:56] LABS: CALCIUM 8.7 mg/dL (8.5-10.1)
[2023-10-24 08:57] LABS: ALBUMIN 2.4 g/dl (3.4-5.0); BLOOD UREA NITROGEN 12.3 mg/dL (7-18); MAGNESIUM 2.2 mg/dL (1.8-2.4)
[2023-10-24 08:58] LABS: TOT PROT 6.3 g/dl (6.4-8.2)
[2023-10-24 09:00] LABS: CREATININE 0.5 mg/dL (0.55-1.3); PHOSPHOROUS 3.5 mg/dL (2.5-4.9)
[2023-10-24 09:01] LABS: BILIRUBIN,TOTAL 0.9 mg/dL (0.2-1)
[2023-10-24] MEDS: NICOTINE 21 MG/24 HOURS TOPICAL PATCH TD SCH (09:11)
[2023-10-24] MEDS: ENOXAPARIN NA (PORCINE) 40 MG/0.4 ML DISP.SYRIN SQ SCH (09:11)
[2023-10-24] MEDS: methaDONE 80 MG, methaDONE 10 MG PO SCH (09:12)
[2023-10-25] MEDS ORDERED: AMPICILLIN NA/SULBACTAM NA 3 GM VIAL ONE (02:58)
[2023-10-25] MEDS: AMPICILLIN NA/SULBACTAM NA 3 GM in SODIUM CHLORIDE 100 ML IVPB SCH ×4 (03:12→21:37)
[2023-10-25] MEDS: methaDONE 80 MG, methaDONE 10 MG PO SCH (05:20)
[2023-10-25] MEDS: LACTATED RINGERS SOLUTION 1,000 ML/1,000 ML INFUS.BAG IV SCH (09:43)
[2023-10-25 09:46] LABS: HEMATOCRIT 41.3 % (35.4-49); HEMOGLOBIN 13.8 GM/dL (11.7-16.9); MCH 31.1 pg (25.7-33.7); MCHC 33.5 g/dl (32.0-35.9); MEAN CELL VOLUME 92.7 fl (80-96); MEAN PLT VOLUME 8.8 fl (7.5-11.1); PLATELET COUNT 190 10^3/uL (134-434); RBC 4.46 M/mm3 (4.00-5.60); RDW 14.5 % (11.9-15.9); WHITE BLOOD COUNT 6.6 K/mm3 (4.0-10.0)
[2023-10-25] MEDS: NICOTINE 21 MG/24 HOURS TOPICAL PATCH TD SCH (09:47)
[2023-10-25] MEDS: ENOXAPARIN NA (PORCINE) 40 MG/0.4 ML DISP.SYRIN SQ SCH (09:47)
[2023-10-25] MEDS: POLYETHYLENE GLYCOL (HEALTHYLAX) 3350 17 GM PACKET PO SCH (09:58)
[2023-10-25 11:26] LABS: POTASSIUM 3.9 mmol/L (3.5-5.1)
[2023-10-25 12:01] LABS: CALCIUM 8.8 mg/dL (8.5-10.1)
[2023-10-25 12:02] LABS: ALBUMIN 2.7 g/dl (3.4-5.0); BLOOD UREA NITROGEN 7.4 mg/dL (7-18); MAGNESIUM 2.2 mg/dL (1.8-2.4)
[2023-10-25 12:05] LABS: CREATININE 0.5 mg/dL (0.55-1.3); PHOSPHOROUS 3.6 mg/dL (2.5-4.9)
[2023-10-25 12:06] LABS: BILIRUBIN,TOTAL 0.5 mg/dL (0.2-1); TOT PROT 7.2 g/dl (6.4-8.2)
[2023-10-25] MEDS: SENNOSIDES/DOCUSATE COMBO (SENNA PLUS) TABLET (UD) PO SCH ×2 (13:03→21:38)
[2023-10-25] MEDS: KETOROLAC TROMETHAMINE 15 MG/ML VIAL IVPUSH PRN (18:07)
[2023-10-26] MEDS: AMPICILLIN NA/SULBACTAM NA 3 GM in SODIUM CHLORIDE 100 ML IVPB SCH ×2 (02:30→08:59)
[2023-10-26] MEDS: KETOROLAC TROMETHAMINE 15 MG/ML VIAL IVPUSH PRN (02:49)
[2023-10-26] MEDS: methaDONE 80 MG, methaDONE 10 MG PO SCH (06:00)
[2023-10-26] MEDS ORDERED: MORPHINE SULFATE 15 MG PO PRN (06:09)
[2023-10-26] MEDS ORDERED: morphine SULFATE 4 MG/ML VIAL IVPUSH PRN (06:10)
[2023-10-26 07:02] VITALS: RESP 18
[2023-10-26] MEDS: POLYETHYLENE GLYCOL (HEALTHYLAX) 3350 17 GM PACKET PO SCH (08:59)
[2023-10-26] MEDS: NICOTINE 21 MG/24 HOURS TOPICAL PATCH TD SCH (08:59)
[2023-10-26] MEDS: ENOXAPARIN NA (PORCINE) 40 MG/0.4 ML DISP.SYRIN SQ SCH (08:59)
[2023-10-26] MEDS: SENNOSIDES/DOCUSATE COMBO (SENNA PLUS) TABLET (UD) PO SCH (08:59)
[2023-10-26 10:34] VITALS: BP 144/98; PULSE 98; TEMP 98
== END 2023-10-26 13:00 | disposition home or self-care (01) | DRG 383 ==
LOC: JER 15:15 → JERBED 17:52 → J6S 20:49
PROVIDERS: ADMIT Internal Medicine; ATTEND Internal Medicine
DX: L03.011 Cellulitis of right finger (principal); E46 Unspecified protein-calorie malnutrition; F95.2 Tourette's disorder; F11.20 Opioid dependence, uncomplicated; R62.7 Adult failure to thrive; Z68.1 Body mass index [BMI] 19.9 or less, adult; C18.9 Malignant neoplasm of colon, unspecified; C78.7 Secondary malignant neoplasm of liver and intrahepatic bile duct; F32.A Depression, unspecified; F17.210 Nicotine dependence, cigarettes, uncomplicated; K59.00 Constipation, unspecified; F12.10 Cannabis abuse, uncomplicated
CPT/HCPCS: 36415; 80053; 80307; 81003; 83735; 84100; 85025; 85027; 93005; 93010; 99285-25